=== PATIENT | female | born 1975 | race Caucasian/White ===

== ENCOUNTER 2019-07-26 20:54 | Emergency (ER) | payer MEDICAID ==
[~2019-07-26] VITALS: Ht 170.2 cm; Wt 108.9 kg
[2019-07-26 21:07] VITALS: BP 140/97
== END 2019-07-26 21:42 | disposition home or self-care (01) ==
LOC: ER 20:57
DX: J45.909 Unspecified asthma, uncomplicated (principal); Z88.2 Allergy status to sulfonamides; Z60.2 Problems related to living alone

== ENCOUNTER 2022-01-02 02:56 | Emergency (ER) | payer MEDICAID, OTHER ==
[~2022-01-02] VITALS: Ht 170.2 cm; Wt 117.9 kg
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
--- NOTE | 2022-01-02 03:15 | NUR ---
ASSEMBLER ERECTOR AT PT'S BEDSIDE
--- NOTE | 2022-01-02 03:19 | NUR ---
WOOD SCALER AT PT'S BEDSIDE
--- NOTE | 2022-01-02 03:20 | NUR ---
EMT AT PT'S BEDSIDE FOR EKG
[2022-01-02 03:31] LABS: BASOPHILS # (AUTO) 0.1 K/uL (0.0-0.2); BASOPHILS % (AUTO) 1.2 % (0.0-2.0); EOSINOPHILS % (AUTO) 14.3 % (0.0-6.0); HEMATOCRIT 38 % (33-45); HEMOGLOBIN 12.3 g/dL (11.5-14.8); LYMPHOCYTES # (AUTO) 1.5 K/uL (0.8-4.8); LYMPHOCYTES % (AUTO) 33.1 % (20.0-44.0); MEAN CORPUSCULAR HGB CONC 32 g/dl (31.0-36.0); MEAN CORPUSCULAR VOLUME 85 fL (82-100); MONOCYTES # (AUTO) 0.4 K/uL (0.1-1.30); MONOCYTES % (AUTO) 9.5 % (2.0-12.0); NEUTROPHILS # (AUTO) 1.9 K/uL (1.8-8.9); NEUTROPHILS % (AUTO) 41.9 % (43.0-81.0); PLATELET COUNT (AUTO) 251 K/uL (150-450); RED BLOOD CELL COUNT(AUTO) 4.47 MIL/uL (4.0-5.2); WHITE BLOOD COUNT (AUTO) 4.5 K/uL (4.3-11.0)
[2022-01-02 03:55] LABS: CALCIUM, SERUM 8.7 mg/dL (8.5-10.1); CARBON DIOXIDE 29 mmol/L (21-32); CHLORIDE 103 mmol/L (98-107); GLUCOSE 91 mg/dL (74-106); POTASSIUM 3.8 mmol/L (3.5-5.1); SODIUM SERUM 138 mmol/L (136-145); UREA NITROGEN, BLOOD 12 mg/dL (7-18)
[2022-01-02] MEDS ORDERED: IPRATROPIUM NEB FS 0.5 MG/2.5 ML AMPUL.NEB NEB ONE (04:00)
[2022-01-02] MEDS ORDERED: ALBUTEROL FS 2.5 MG/3 ML VIAL.NEB NEB ONE (04:00)
[2022-01-02] MEDS ORDERED: ALBUTEROL FS 2.5 MG/3 ML VIAL.NEB ONE (05:05)
[2022-01-02] MEDS ORDERED: IPRATROPIUM NEB FS 0.5 MG/2.5 ML AMPUL.NEB ONE (05:05)
[2022-01-02] MEDS ORDERED: IBUP-1957 PO (05:42)
[2022-01-02] MEDS ORDERED: CYCL5TAB PO (05:42)
[2022-01-02] MEDS ORDERED: LEVA15HF4 INH (05:57)
--- NOTE | 2022-01-02 09:09 | NUR ---
Patient discharged to home in stable condition. Written and verbal after care instructions given. Patient verbalizes understanding of instruction.
[2022-01-02 09:10] VITALS: BP 143/84
== END 2022-01-02 09:10 | disposition home or self-care (01) ==
LOC: ER 02:58
DX: R07.89 Other chest pain (principal); M54.12 Radiculopathy, cervical region; N93.9 Abnormal uterine and vaginal bleeding, unspecified; J45.909 Unspecified asthma, uncomplicated; Z88.2 Allergy status to sulfonamides; Z60.2 Problems related to living alone; Z79.899 Other long term (current) drug therapy
CPT/HCPCS: 36415; 71045-TC; 76856-TC; 80048-TC; 83880; 84484-TC; 85025-TC; 85378-TC

== ENCOUNTER 2022-05-30 22:50 | Emergency (ER) | payer OTHER ==
[~2022-05-30] VITALS: Ht 170.2 cm; Wt 117.9 kg
[~2022-05-30 22:50] MED LIST: CYCL5TAB PO; IBUP-1957 PO; LEVA15HF4 INH
[2022-05-31] MEDS ORDERED: predniSONE 20 MG TABLET ONE (00:39)
[2022-05-31] MEDS ORDERED: ACETAMINOPHEN ES 500 MG TABLET ONE (00:40)
[2022-05-31] MEDS ORDERED: CYCLOBENZAPRINE 10 MG TABLET ONE (00:40)
[2022-05-31] MEDS ORDERED: ALBUTEROL FS 2.5 MG/3 ML VIAL.NEB ONE (00:46)
[2022-05-31] MEDS ORDERED: IPRATROPIUM NEB FS 0.5 MG/2.5 ML AMPUL.NEB ONE (00:46)
[2022-05-31] MEDS: CYCLOBENZAPRINE 10 MG TABLET PO ONE (00:53)
[2022-05-31] MEDS: ACETAMINOPHEN 325 MG TABLET PO ONE (00:53)
[2022-05-31] MEDS: predniSONE 20 MG TABLET PO ONE (00:53)
[2022-05-31] MEDS: IPRATROPIUM NEB FS 0.5 MG/2.5 ML AMPUL.NEB NEB ONE (00:54)
[2022-05-31] MEDS: ALBUTEROL FS 2.5 MG/3 ML VIAL.NEB NEB ONE (00:54)
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
--- NOTE | 2022-05-31 01:05 | NUR ---
RT AT BEDSIDE FOR BREATHING TREATMENT
[2022-05-31] MEDS ORDERED: PRED50TA PO (01:59)
[2022-05-31] MEDS ORDERED: CYCL5TAB PO (01:59)
[2022-05-31] MEDS ORDERED: NAPR-1164 PO (01:59)
[2022-05-31 02:13] VITALS: BP 132/90
--- NOTE | 2022-05-31 02:13 | NUR ---
Patient discharged to home in stable condition. Written and verbal after care instructions given. Patient verbalizes understanding of instruction.
== END 2022-05-31 02:14 | disposition home or self-care (01) ==
LOC: ER 22:56
DX: J45.909 Unspecified asthma, uncomplicated (principal); S13.4XXA Sprain of ligaments of cervical spine, initial encounter; R03.0 Elevated blood-pressure reading, without diagnosis of hypertension; Z88.2 Allergy status to sulfonamides; Z60.2 Problems related to living alone; Z79.899 Other long term (current) drug therapy; V89.2XXA Person injured in unspecified motor-vehicle accident, traffic, initial encounter; Y93.89 Activity, other specified; Y92.89 Other specified places as the place of occurrence of the external cause; Y99.8 Other external cause status
CPT/HCPCS: 99284; 72050; 94640 ×2; J7512

== ENCOUNTER 2022-12-18 15:22 | Emergency (ER) | payer OTHER ==
[~2022-12-18] VITALS: Ht 170.2 cm; Wt 103.4 kg
[~2022-12-18 15:22] MED LIST changes: +NAPR-1164 PO; +PRED50TA PO
--- NOTE | 2022-12-18 15:32 | NUR ---
BIBS C/O PULSATING ON THE L SIDE OF HER HEAD ON/OFF X2 DAYS, DENIES ANY PAIN ASSOCIATED WITH IT. VITALS ARE WITHIN NORMAL LIMITS. AWAITING MD SIBLEY.
[2022-12-18] MEDS ORDERED: OXYMETAZOLINE HCL NASAL SPRAY 30 ML BOTTLE NS ONE ×2 (17:00→17:16)
[2022-12-18] MEDS ORDERED: ACETAMINOPHEN ES 500 MG TABLET PO ONE (17:00)
[2022-12-18] MEDS ORDERED: AMOX-430 PO (17:08)
[2022-12-18] MEDS ORDERED: OXYM30SP84 NS (17:08)
[2022-12-18] MEDS ORDERED: FLUT9.9S NS (17:08)
[2022-12-18] MEDS ORDERED: ACETAMINOPHEN ES 500 MG TABLET ONE (17:16)
[2022-12-18 17:25] VITALS: BP 128/73; TEMP 98.3
--- NOTE | 2022-12-18 17:25 | NUR ---
medicated as ordered. d/c home in stable condition.
== END 2022-12-18 17:26 | disposition home or self-care (01) ==
LOC: ER 15:25
DX: H69.82 Other specified disorders of Eustachian tube, left ear (principal); R51.9 Headache, unspecified; J45.909 Unspecified asthma, uncomplicated; D64.9 Anemia, unspecified; Z88.2 Allergy status to sulfonamides; Z60.2 Problems related to living alone; Z79.899 Other long term (current) drug therapy

== ENCOUNTER 2023-09-11 12:28 | Emergency (ER) | payer BC, OTHER ==
[~2023-09-11] VITALS: Ht 170.2 cm; Wt 111.1 kg
[~2023-09-11 12:28] MED LIST changes: +AMOX-430 PO; +FLUT9.9S NS; +OXYM30SP84 NS
[2023-09-11 14:17] VITALS: BP 152/86; TEMP 98.1; O2SAT 98
[2023-09-11 15:34] LABS: BASOPHILS % (AUTO) 0.2 % (0.0-2.0); EOSINOPHILS # (AUTO) 0.4 K/uL (0.0-0.7); EOSINOPHILS % (AUTO) 6.8 % (0.0-6.0); HEMATOCRIT 37 % (33-45); LYMPHOCYTES # (AUTO) 1.4 K/uL (0.8-4.8); LYMPHOCYTES % (AUTO) 23.9 % (20.0-44.0); MEAN CORPUSCULAR HEMOGLOBIN 28 PG (26.0-33.0); MEAN CORPUSCULAR HGB CONC 33 g/dl (31.0-36.0); MEAN CORPUSCULAR VOLUME 85 fL (82-100); MONOCYTES # (AUTO) 0.5 K/uL (0.1-1.30); MONOCYTES % (AUTO) 8.1 % (2.0-12.0); NEUTROPHILS # (AUTO) 3.5 K/uL (1.8-8.9); PLATELET COUNT (AUTO) 256 K/uL (150-450); RED BLOOD CELL COUNT(AUTO) 4.31 MIL/uL (4.0-5.2); RED CELL DISTRIBUTION WIDTH 15.8 % (11.5-15.0); WHITE BLOOD COUNT (AUTO) 5.7 K/uL (4.3-11.0)
[2023-09-11] MEDS ORDERED: IV NS 0.9% 250 ML IV ONE (15:47)
[2023-09-11] MEDS ORDERED: IOHEXOL-300 100 ML VIAL IV ONE (15:47)
[2023-09-11] MEDS ORDERED: CT SWABBABLE VALVE TRANS SET 1 EA INFUS.SET MC ONE (15:47)
[2023-09-11 15:51] LABS: CREATININE 0.9 mg/dL (0.6-1.3); POTASSIUM 3.9 mmol/L (3.5-5.1)
[2023-09-11] MEDS: CEFTRIAXONE 2 G in IV D5W 50 ML IV ONE (17:51)
[2023-09-11] MEDS: VANCOMYCIN 1 GM in IV D5W 250 ML IV ONE (18:17)
== END 2023-09-11 22:38 | disposition short-term general hospital (02) ==
LOC: ER 12:28
DX: L03.213 Periorbital cellulitis (principal); H05.012 Cellulitis of left orbit; J45.909 Unspecified asthma, uncomplicated; Z88.2 Allergy status to sulfonamides; Z60.2 Problems related to living alone; Z79.899 Other long term (current) drug therapy
CPT/HCPCS: 99285; 96365; 70481; 96368; 85025; 80048; 36415; J0696; J3370; J7060; J7050; A4223; Q9967